=== PATIENT | female | born 1990 | race African-American/Black ===

== ENCOUNTER 2017-02-10 03:42 | Emergency (ER) | payer MEDICAID ==
[~2017-02-10] VITALS: Ht 160 cm; Wt 92.0 kg
[2017-02-10 03:48] VITALS: BP 126/72; PULSE 90; RESP 16; TEMP 98.4; O2SAT 98
[2017-02-10] MEDS ORDERED: CEPH500C PO (04:34)
[2017-02-10] MEDS ORDERED: PRED-503 PO (04:34)
[2017-02-10] MEDS ORDERED: PHEN-510 PO (04:34)
--- NOTE | 2017-02-10 04:37 | PD ---
HPI Chief Complaint: ENT Complaint Time Seen by Provider: 04:34 Travel History International Travel<30 days: No Contact w/Intl Traveler<30days: No Traveled to known affect area: No History of Present Illness HPI 26-year-old white female presents to emergency Department with complaints of sore throat since Thursday. In addition to having sore throat she's had subjective fever and chills, nausea but no vomiting, increased urinary frequency , dysuria and hematuria. She states that she has a history of strep throat in the past. She has difficulty swallowing. No alleviating factors. Symptoms are moderate. [facility] Past Medical History Medical History: Denies Significant Hx Tetanus Vaccination: < 5 Years ?: Not Past Surgical History Section: Yes (2011) Social History Alcohol Use: No Tobacco Use: No Substance Use: No Allergies-Medications (Allergen,Severity, Reaction): Coded Allergies: No Known Allergies (Unverified , 02/10/17) Reported Meds & Prescriptions Reported Meds & Active Scripts Active No Active Prescriptions or Reported Medications Review of Systems Except as stated in HPI: all other systems reviewed are Neg Physical Exam Narrative GENERAL: Well-developed, well-nourished in no acute distress. Nontoxic appearing. HEAD: Normocephalic, atraumatic. EYES: Pupils equal round and reactive. Extraocular motions intact. No scleral icterus. No injection or drainage. ENT: TMs clear without erythema. The external auditory canals clear. Nose: clear . Posterior pharynx is erythematous and moist. Positive tonsillar edema but no exudate. Uvula midline. Airway patent. NECK: Trachea midline.Supple, nontender, moves head freely. No central bony tenderness or spasm. CARDIOVASCULAR: Regular rate and rhythm without murmurs, gallops, or rubs. RESPIRATORY: Clear to auscultation. Breath sounds equal bilaterally. No wheezes , rales, or rhonchi. GASTROINTESTINAL: Abdomen soft, non-tender, nondistended. No hepato-splenomegaly , or palpable masses. No guarding. EXTREMITIES: No clubbing, cyanosis, or edema. No joint tenderness, effusion, or edema noted. BACK: Nontender without deformity or crepitance. No flank tenderness. Data Data Last Documented VS Vital Signs Date Time Temp Pulse Resp B/P Pulse Ox O2 Delivery O2 Flow Rate FiO2 02/10/17 03:48 98.4 90 16 126/72 98 Room Air Orders Cephalexin (Keflex) (02/10/17 04:45) Phenazopyridine (Pyridium) (02/10/17 04:45) [id number]-[id number]-Qeha Liq (Magic Mouthwash Adul (02/10/17 04:45) MDM Medical Decision Making Medical Screen Exam Complete: Yes Emergency Medical Condition: Yes Medical Record Reviewed: Yes Differential Diagnosis MDM: High Differential diagnoses: Strep throat, viral pharyngitis, mono, UTI, pyelonephritis Narrative Course Patient's given Keflex 500 and Pyridium 200 mg by mouth. Magic mouthwash swish and spit This is acute pharyngitis, UTI Diagnosis Primary Impression: Acute pharyngitis Qualified Code: J02.9 - Acute pharyngitis, unspecified etiology Additional Impression: Acute UTI Patient Instructions: General Instructions Additional Instructions: Rest. Force fluids. Saltwater gargles. Tylenol and Advil. Chloraseptic [place] Cepastat lozenge. Keflex, peridium and prednisone.. Follow-up with a primary care doctor in one week. Return to the ER if any problems. Med/Other Pt SpecificInfo: Prescription(s) given Scripts Prednisone (Deltasone)20 Mg Tab20 Mg PO BID #10 TAB Prov:Brenda Agarwal MD 02/10/17 Phenazopyridine HCl (Pyridium)200 Mg Tablet1 Tab PO TID #6 Prov:Brenda Agarwal MD 02/10/17 Cephalexin 500 Mg Ipe405 Mg PO Q6H #40 CAP Prov:Brenda Agarwal MD 02/10/17 Disposition: 01 DISCHARGE HOME Condition: Stable Nagi Viera Feb 10, 2017 04:37
[2017-02-10] MEDS ORDERED: PHENAZOPYRIDINE HCL 200 MG TAB PO ONE (04:45)
[2017-02-10] MEDS ORDERED: CEPHALEXIN MONOHYDRATE 500 MG CAP PO ONE (04:45)
[2017-02-10] MEDS ORDERED: NYSTAT/DIPHENHY/LIDO MOUTHWASH (Adult) 120ML SWISH-SWAL ONE (04:45)
== END 2017-02-10 05:17 | disposition home or self-care (01) ==
LOC: NEPD 03:42
DX: J02.9 Acute pharyngitis, unspecified (principal); N39.0 Urinary tract infection, site not specified
CPT/HCPCS: 99284